=== PATIENT | female | born 1975 | race Caucasian/White ===

== ENCOUNTER 2023-09-06 11:46 | Emergency (ER) | payer MEDICAID, SELFPAY ==
--- NOTE | ~2023-09-06 | XR_ITS ---
EXAMINATION: XR WRIST, RIGHT XR HAND, RIGHT CLINICAL INFORMATION: Right hand/wrist pain following a fall. COMPARISON: Right hand radiographs dated 10/05/2016. TECHNIQUE: PA, oblique, lateral, and scaphoid views of the right hand and wrist. FINDINGS: No acute fracture or dislocation. No joint space narrowing or marginal osteophytes. Normal carpal alignment. No osseous erosion. No abnormal soft tissue calcification. XR/XR hand wrist RT IMPRESSION: Unremarkable examination.
--- NOTE | 2023-09-06 11:51 | ED.UPPEXIN ---
HPI - Extremity Injury (Upper) General Chief Complaint: Extremity Injury, Upper Stated Complaint: fell on thumb, hand is numb and tingly Related Data Previous Rx's Medication Instructions Recorded ibuprofen 600 mg tablet 600 mg PO Q6H PRN pain #30 tabs 09/06/23 Allergies Allergy/AdvReac Type Severity Reaction Status Date / Time No Known Allergies Allergy Verified 09/06/23 11:54 Physical Exam Vital Signs: Vital Signs: Last Vital Signs Temp 97.6 F 09/06/23 11:52 Pulse 83 09/06/23 11:52 Resp 18 09/06/23 11:52 BP 105/53 L 09/06/23 11:52 Pulse Ox 96 09/06/23 11:52 O2 Del Method Room Air 09/06/23 11:52 BMI result Body Mass Index 27.3 Course Course Course Narrative: This is an RME: Additional HPI, ROS, PE not included below will be deferred to primary provider. This is a [id number] presenting to the emergency department with a complaint of right hand and wrist pain s/p fal lwhich occurred today. She states that she tripped and fell on a blanket and landed on her outstretched hand. Denies LOC or head strike. Plan: Xray wrist, xray hand Discharge Plan Discharge Clinical Impression: Contusion of hand Patient Disposition: Home, Self-Care Instructions: Contusion in Adults (ED), Wrist Sprain (ED) Additional Instructions: You went to the emergency room for hand and wrist pain. Your x-rays do not show any broken bones. Please rest, ice, use wrist splint, and elevate your right hand and wrist. Full range of motion can also help with your pain. Please take ibuprofen as directed as needed for pain. I am giving your referral to Orthopedics if you persist to have hand pain. Call to make an appointment as needed. If any new or worsening symptoms occur please return for re-evaluation. Prescriptions: New ibuprofen 600 mg tablet 600 mg PO Q6H PRN (Reason: pain) Qty: 30 0RF
[2023-09-06 11:52] VITALS: BP 105/53; PULSE 83; RESP 18; TEMP 36.4; O2SAT 96; BMI 27.3
[2023-09-06] MEDS: Ibuprofen 600 MG TABLET PO (13:07)
== END 2023-09-06 13:15 | disposition home or self-care (01) ==
PROVIDERS: Emergency Provider Student in an Organized Health Care Education/Training Program
DX: S60.221A Contusion of right hand, initial encounter (principal); M79.641 Pain in right hand; M25.531 Pain in right wrist; X58.XXXA Exposure to other specified factors, initial encounter; Y93.9 Activity, unspecified; Y92.9 Unspecified place or not applicable; Y99.9 Unspecified external cause status
CPT/HCPCS: 29125; 73110; 73130; 99283